=== PATIENT | male | born 1980 | race Two or more races ===

== ENCOUNTER 2021-09-17 01:08 | Emergency (ER) | payer OTHER ==
[~2021-09-17] VITALS: Ht 170.2 cm; Wt 100.7 kg
[2021-09-17] MEDS ORDERED: ZYRTEC10 M3 (01:17)
== END 2021-09-17 03:50 | disposition home or self-care (01) ==
LOC: ER 01:08
DX: R10.32 Left lower quadrant pain (principal); K76.0 Fatty (change of) liver, not elsewhere classified; N20.0 Calculus of kidney; K57.90 Diverticulosis of intestine, part unspecified, without perforation or abscess without bleeding